=== PATIENT | female | born 1960 | race Caucasian/White ===

== ENCOUNTER 2020-07-12 15:00 | Emergency (ER) | payer BC ==
[2020-07-12 15:35] VITALS: PULSE 71
[2020-07-12] MEDS ORDERED: cloNIDine 0.1 MG Tab PO ONE (16:13)
[2020-07-12 16:50] VITALS: BP 230/70
--- NOTE | 2020-07-12 20:22 | EDM.PDOC ---
ED HPI GENERAL MEDICAL PROBLEM - General Chief Complaint: Cardiovascular Problem Stated Complaint: HIGH BLOOD PRESSURE Time Seen by Provider: 07/12/20 15:00 Source of Information: Reports: Other History Limitations: Reports: Combative/Threatening, Uncooperative - History of Present Illness INITIAL COMMENTS - FREE TEXT/NARRATIVE: c/o inc'd BP pt went to clinic and saw Dr Webb, BP 240/92, sent here for further evaluation ED very busy, pt informed multiple times, was abusive and argumentative and yelling and threatening to lab, RN, myself and Keyla it was about one hr until labs were able to be drawn and then another hour for results I told pt several times that she had a new RBBB on EKG c/w 4y previously and a marked inc'd BNP that could be life threatening, that I would be with her as soon as I could she yelled at me in a loud voice in a very abusive fashion, insisting that she be seen immediately even though other pts had been waiting even longer than her I persuaded her to return to her room (rather than walk out AMA) and asked the linux system administrator news content specialist to speak with her, pt was yelling at Keyla from admin thru the closed door in [address] when Keyla was with here and could be heard at the nursing station, Keyla said that pt had given her an ultimatum that she would wait 15 minutes and then would walk out if she was not seen I explained to Keyla (who then spoke to pt) that I can never guarantee when I am available as we often have have many critical pts in the ED as we did at the time, that I would see her as soon as I possibly could in about 15 min pt walked out of ED without signing AMA papers and without speaking to anyone - Related Data Allergies Allergy/AdvReac Type Severity Reaction Status Date / Time codeine Allergy Lightheaded Verified 07/12/20 15:22 ness Bees Allergy Anaphylactic Uncoded 07/12/20 15:22 Shock eggs Allergy Nausea Uncoded 07/12/20 15:22 Home Meds: Home Meds Aspirin [Ecotrin EC] 81 mg PO DAILY 01/03/16 [History] Clopidogrel [Plavix] 75 mg PO DAILY 01/03/16 [History] Levothyroxine 150 mcg PO DAILY 01/03/16 [History] Metoprolol Succinate [Toprol XL] 50 mg PO BEDTIME 01/03/16 [History] Nitroglycerin 0.4 mg SL ASDIRECTED PRN 01/03/16 [History] atorvaSTATin [Lipitor] 80 mg PO BEDTIME 01/03/16 [History] Past Medical History HEENT History: Reports: Other (See Below) Other HEENT History: Wears glasses. Cardiovascular History: Reports: MA, PTCA, Stents Other Cardiovascular History: History of MA and stents two years ago. FRONT DESK MONITOR History: Reports: Musculoskeletal History: Reports: Arthritis Endocrine/Metabolic History: Reports: Hypothyroidism, Other (See Below) Other Endocrine/Metabolic History: Takes medication. - Infectious Disease History Infectious Disease History: Reports: Chicken Pox, Other (See Below) Other Infectious Disease History: Only recalls a mild case of chickenpox. - Past Surgical History Cardiovascular Surgical History: Reports: Other (See Below) Other Cardiovascular Surgeries/Procedures: stents put in Social & Family History - Tobacco Use Tobacco Use Status *Q: Current Every Day Tobacco User Years of Tobacco use: 42 Packs/Tins Daily: 1 - Caffeine Use Caffeine Use: Reports: Coffee, Soda - Recreational Drug Use Recreational Drug Use: No ED ROS GENERAL - Review of Systems Review Of Systems: See Below Constitutional: Reports: Other (pt left AMA before ROS done) ED EXAM, GENERAL - Physical Exam Exam: See Below Exam Limited By: Other (pt left AMA before PE done) Course - Vital Signs Last Recorded V/S: Last Vital Signs Temp 36.8 C 07/12/20 15:01 Pulse 71 07/12/20 15:01 Resp 20 07/12/20 15:01 BP 230/70 H 07/12/20 16:49 Pulse Ox 99 07/12/20 15:01 - Orders/Labs/Meds Labs: Laboratory Tests 07/12/20 07/12/20 07/12/20 Range/Units 15:58 16:29 16:29 WBC 8.6 (4.5-12.0) X10-3/uL RBC 4.80 (3.23-5.20) x10(6)uL Hgb 14.8 (11.5-15.5) g/dL Hct 43.0 (30.0-51.3) % MCV 89.7 (80-96) fL MCH 30.8 (27.7-33.6) pg MCHC 34.3 (32.2-35.4) g/dL RDW 13.4 (11.5-15.5) % Plt Count 246 (125-369) X10(3)uL MPV 9.3 (7.4-10.4) fL Neut % (Auto) 59.8 (46-82) % Lymph % (Auto) 31.4 (13-37) % Maverick % (Auto) 5.1 (4-12) % Eos % (Auto) 3 (1.0-5.0) % Baso % (Auto) 1 (0-2) % Neut # (Auto) 5.2 (1.6-8.3) # Lymph # (Auto) 2.7 (0.6-5.0) # Maverick # (Auto) 0.4 (0.0-1.3) # Eos # (Auto) 0.3 (0.0-0.8) # Baso # (Auto) 0.0 (0.0-0.2) # Sodium 143 (135-145) mmol/L Potassium 3.6 (3.5-5.3) mmol/L Chloride 107 (100-110) mmol/L Carbon Dioxide 29 (21-32) mmol/L BUN 16 (7-18) mg/dL Creatinine 0.9 (0.55-1.02) mg/dL Est Cr Clr Drug Dosing 61.31 mL/min Estimated GFR (MDRD) > 60 (>60) BUN/Creatinine Ratio 17.8 (9-20) Glucose 91 (80-116) mg/dL Calcium 8.5 L (8.6-10.2) mg/dL Total Bilirubin 0.2 (0.1-1.3) mg/dL AST 13 (5-25) IU/L ALT 21 (12-36) U/L Alkaline Phosphatase 63 (56-112) IU/L Troponin I (4.0-60.3) pg/mL NT-Pro-B Natriuret Pep (<=125) pg/mL Total Protein 6.2 (6.0-8.0) g/dL Albumin 3.3 L (3.5-5.2) g/dL Globulin 2.9 g/dL Albumin/Globulin Ratio 1.1 TSH, Ultra Sensitive (0.36-3.74) IU/mL Urine Color Yellow (YELLOW) Urine Appearance Clear (CLEAR) Urine pH 6.5 (5.0-6.5) Ur Specific [place] 1.015 (1.010-1.025) Urine Protein Negative (NEGATIVE) mg/dL Urine Glucose (UA) Normal (NORMAL) mg/dL Urine Ketones Negative (NEGATIVE) mg/dL Urine Occult Blood Negative (NEGATIVE) Urine Nitrite Negative (NEGATIVE) Urine Bilirubin Negative (NEGATIVE) Urine Urobilinogen Normal (NEGATIVE) mg/dL Ur Leukocyte Esterase Negative (NEGATIVE) Urine RBC 0-5 (0-5) Urine WBC 0-5 (0-5) Ur Squamous Epith Cells Few H (NS,R,O) Urine Bacteria Few H (NS) 07/12/20 07/12/20 Range/Units 16:29 16:29 WBC (4.5-12.0) X10-3/uL RBC (3.23-5.20) x10(6)uL Hgb (11.5-15.5) g/dL Hct (30.0-51.3) % MCV (80-96) fL MCH (27.7-33.6) pg MCHC (32.2-35.4) g/dL RDW (11.5-15.5) % Plt Count (125-369) X10(3)uL MPV (7.4-10.4) fL Neut % (Auto) (46-82) % Lymph % (Auto) (13-37) % Maverick % (Auto) (4-12) % Eos % (Auto) (1.0-5.0) % Baso % (Auto) (0-2) % Neut # (Auto) (1.6-8.3) # Lymph # (Auto) (0.6-5.0) # Maverick # (Auto) (0.0-1.3) # Eos # (Auto) (0.0-0.8) # Baso # (Auto) (0.0-0.2) # Sodium (135-145) mmol/L Potassium (3.5-5.3) mmol/L Chloride (100-110) mmol/L Carbon Dioxide (21-32) mmol/L BUN (7-18) mg/dL Creatinine (0.55-1.02) mg/dL Est Cr Clr Drug Dosing mL/min Estimated GFR (MDRD) (>60) BUN/Creatinine Ratio (9-20) Glucose (80-116) mg/dL Calcium (8.6-10.2) mg/dL Total Bilirubin (0.1-1.3) mg/dL AST (5-25) IU/L ALT (12-36) U/L Alkaline Phosphatase (56-112) IU/L Troponin I 9.5 (4.0-60.3) pg/mL NT-Pro-B Natriuret Pep 1303 H* (<=125) pg/mL Total Protein (6.0-8.0) g/dL Albumin (3.5-5.2) g/dL Globulin g/dL Albumin/Globulin Ratio TSH, Ultra Sensitive 0.57 (0.36-3.74) IU/mL Urine Color (YELLOW) Urine Appearance (CLEAR) Urine pH (5.0-6.5) Ur Specific [place] (1.010-1.025) Urine Protein (NEGATIVE) mg/dL Urine Glucose (UA) (NORMAL) mg/dL Urine Ketones (NEGATIVE) mg/dL Urine Occult Blood (NEGATIVE) Urine Nitrite (NEGATIVE) Urine Bilirubin (NEGATIVE) Urine Urobilinogen (NEGATIVE) mg/dL Ur Leukocyte Esterase (NEGATIVE) Urine RBC (0-5) Urine WBC (0-5) Ur Squamous Epith Cells (NS,R,O) Urine Bacteria (NS) Meds: Medications Discontinued Medications Generic Name Dose Route Start Last Admin Trade Name Freq PRN Reason Stop Dose Admin Clonidine HCl 0.1 mg 07/12/20 16:13 07/12/20 16:20 Catapres PO 07/12/20 16:14 0.1 mg ONETIME ONE Administration - Re-Assessments/Exams Free Text/Narrative Re-Assessment/Exam: 07/12/20 20:33 The following letter was requested to be sent via certified mail in the morning to the pt: 07-12-20 [place] [id number] [id number] Emergency Department [place], [place] Dear Jarod: When you were in the Emergency Department, your electrocardiogram (ECG) showed a right bundle branch block. This was new compared with a previous ECG from 4 years ago. This can sometimes be due to an electrical problem, sometimes due to a block of a coronary artery, either of which can be life threatening. One of our blood tests also showed an increase of a heart protein called a beta naturietic protein (BNP), which is often increased due to heart failure or weakness of the heart muscle. Your BNP was over 10 times the upper limit of normal, which is a very high level and cannot indicate damage to your heart. Both of these problems can be life threatening. You should see a deputy clerk of superior court as soon as possible. However, it is better to return to the Emergency Department or to be seen by your doctor immediately for further evaluation and recommendations. Sincerely, Héctor Beckham MD Emergency Medicine CC: Dr Curiel, Dr Webb Departure - Departure Time of Disposition: 17:15 Disposition: Against Medical Advice 07 Condition: Undetermined Clinical Impression: Elevated blood pressure reading, New onset right bundle branch block (RBBB), Elevated brain natriuretic peptide (BNP) level Referrals: Greg Hernandez MD [Primary Care Provider] - Forms: ED Department Discharge, ED Return to Work/School Form Sepsis Event Note (ED) - Evaluation Sepsis Screening Result: No Definite Risk - Focused Exam Vital Signs: Vital Signs Temp Pulse Resp BP BP Pulse Ox 07/12/20 16:49 230/70 H 07/12/20 16:20 166/132 H 07/12/20 16:18 166/132 H 07/12/20 15:01 36.8 C 71 20 245/80 H 99
== END 2020-07-12 17:29 | disposition left against medical advice (07) ==
LOC: FB.ED 15:00
DX: I45.10 Unspecified right bundle-branch block (principal); R03.0 Elevated blood-pressure reading, without diagnosis of hypertension; R79.89 Other specified abnormal findings of blood chemistry; E03.9 Hypothyroidism, unspecified; I25.2 Old myocardial infarction; F17.210 Nicotine dependence, cigarettes, uncomplicated; Z88.5 Allergy status to narcotic agent; Z91.030 Bee allergy status; Z91.012 Allergy to eggs; Z95.5 Presence of coronary angioplasty implant and graft; Z79.82 Long term (current) use of aspirin; Z79.02 Long term (current) use of antithrombotics/antiplatelets; Z79.899 Other long term (current) drug therapy; Z53.20 Procedure and treatment not carried out because of patient's decision for unspecified reasons
CPT/HCPCS: 36415; 80053; 81001; 83880; 84443; 84484; 85025; 93005; 93010; 99284-25; A9270-GY